=== PATIENT | male | born 1950 | race Caucasian/White ===

== ENCOUNTER → 2023-09-01 14:15 | Outpatient (REF) | payer MEDICARE, OTHER, SELFPAY | LOC: HWRAD 14:15 | PROVIDERS: ATTENDING PHYSICIAN Internal Medicine Critical Care Medicine; FAMILY PHYSICIAN Family Medicine | DX: J44.9 Chronic obstructive pulmonary disease, unspecified (principal); R91.1 Solitary pulmonary nodule | CPT/HCPCS: 71046 ==

== ENCOUNTER 2024-06-07 20:54 | Observation (INO) | payer MEDICARE, OTHER, SELFPAY ==
[2024-06-07 16:24] VITALS: BP 192/111
[2024-06-07 16:50] LABS: % Basophils 0.9 % (0-2); % Eosinophils 4.9 % (0-6); % Immature Granulocytes 0.4 % (0-0.5); % Lymphocytes 22.8 % (20.5-51.1); Absolute Basophils 0.1 10^3/uL (0-0.2); Absolute Eosinophils 0.5 10^3/uL (0-0.7); Absolute Lymphocytes 2.3 10^3/uL (1.2-3.4); Absolute Monocytes 0.7 10^3/uL (0.1-0.6); Absolute Neutrophils 6.6 10^3/uL (1.4-6.5); Hemoglobin 14.2 g/dL (13.0-18.0); Mean Corp Hgb Conc. 36.4 g/dL (33.0-37.0); Mean Corpuscular Hgb 32.8 pg (27.0-31.0); Mean Corpuscular Volume 90.1 fL (80.0-94.0); Mean Platelet Volume 10.7 fL (7.4-10.4); Nucleated Red Blood Cells % 0 % (-); Platelet Count 184 10^3/uL (130-400); Red Blood Cell Count 4.33 10^6/uL (4.70-6.10); Red Cell Dist. Width 12.8 % (11.5-14.5); White Blood Cell Count 10.3 10^3/uL (4.8-10.8)
[2024-06-07 16:58] LABS: APTT 27.6 Sec (23.4-35.0); INR 1.04; PT 13.4 Sec (11.4-14.6)
[2024-06-07 17:03] LABS: ALT (SGPT) 64 U/L (0-50); AST (SGOT) 63 U/L (17-59); Albumin 4.4 g/dl (3.5-5.0); Alkaline Phosphatase 47 U/L (38-126); Blood Urea Nitrogen 27 mg/dl (9-20); Calcium 9.7 mg/dl (8.4-10.2); Carbon Dioxide 24 mmol/L (22-30); Chloride 103 mmol/L (98-107); Glucose 163 mg/dl (70-99); Potassium 4.6 mmol/L (3.5-5.1); Sodium 142 mmol/L (135-145); Total Bilirubin 0.9 mg/dl (0.2-1.3); Total Protein 7.3 g/dl (6.3-8.2); eGFR > 60.00
[2024-06-07 17:12] VITALS: BP 150/94; BMI 38.0
--- NOTE | 2024-06-07 17:14 | ED.CVA ---
History of Present Illness
General
Chief Complaint: CVA/TIA Symptoms
Source: patient
Exam Limitations: none
Time Seen by Provider: 06/07/24 16:56
Nursing documentation reviewed up to this point in time: agreed with
Onset of Stroke Symptoms
Onset of symptoms known: Yes
Date of onset of symptoms: 06/07/24
Time of onset of symptoms: 15:00
Time pt last seen normal is known: Yes
Date last time pt seen normal: 06/07/24
Time last time pt seen normal: 14:45
History of Present Illness
History of Present Illness:
74-year-old male presents emergency room due to having difficulty speaking for about 20 minutes, then resolving. This happened at 3 PM. His witnessed it. He now feels normal. He had an episode 3 weeks ago as well. He did not go to the
hospital then as he was [place] [facility].
Past History
Past History
ED Past Medical History: HTN
ED Past Surgical History: None
Social History
Tobacco: Non-smoker
Alcohol: None
Drug: None
Personal:
Living: with family
Review of Systems
Review of Systems
Allergies reviewed?: Yes
All Other Systems: Not applicable
Constitutional: Reports no symptoms
EENT: Reports no symptoms
Respiratory: Reports no symptoms
Cardiac: Reports no symptoms
ABD/GI: Reports no symptoms
: Reports no symptoms
Musculoskeletal: Reports no symptoms
Skin: Reports no symptoms
Neurological: Reports other (Difficulty speaking)
Endocrine: Reports no symptoms
Hematologic/Lymphatic: Reports no symptoms
Psychiatric: Reports no symptoms
Phy Exam
Physical Exam
Physical Exam:
Physical Exam
General: Afebrile, blood pressure 192/111
Neck: supple. no meningeal signs. normal posterior pharynx
Heart: s1/s2 regular rate and rhythm, no murmur. equal radial
pulses.
HEENT: Pupils equal round reactive to light, EOMI
Lungs: no acute respiratory distress. clear bilaterally
Abdomen: normal bowel sounds. not tender. no CVAT
Neuro: alert and oriented. no focal neurological deficits cranial nerves II through XII intact
Skin: no rash
Psychiatric: well kept. interactive and cooperative
Extremities: no edema. no calf tenderness. negative homans. good distal pulses
Course
Orders/Labs/Results
Orders:
Orders
06/07/24 16:27
Electrocardiogram (*1) Urgent
Reason for Study: Other
Other Reason for Exam: Possible Stroke
EKG- Treatment ONCE
06/07/24 16:[address] [CT Head W/o Iv Contrast] Urgent
Comment: at 1500
Reason For Exam: tia symptoms-30 minutes of expressive aphasia
06/07/24 16:37
Complete Blood Count/With Diff Urgent
Comprehensive Metabolic Panel Urgent
PTT Urgent
Prothrombin Time Urgent
Troponin I Urgent
06/07/24 20:34
Admit/Transfer Patient As Directed
Co-Sign Provider:
Level of Care: Observation services
Assign to:: Telemetry
Physician / Group: chip
Diagnosis: tia
Reason for Telemetry: Arrhythmia
Date to Stop Telemetry: 06/10/24
Time to Stop Telemetry: 11:00
PRN Pain Medication Management As Directed
May give lesser potent ordered pain med per pt: Yes
preference::
Protocol:: Medication orders for pain may be administered in a
manner that supports deferring to patient preference
when the pt is:
- Requesting an ordered lesser potent pain medication.
Least to most potent pain medications are defined
as: acetaminophen < NSAID < tramadol < opioids
(morphine, oxycodone, hydromorphone).
- Requesting a lesser dose of the same medication IF
ORDERED.
- Requesting a less intrusive route of administration
if both routes are prescribed by the provider (PO <
IV).
06/07/24 20:35
Code Status As Directed
Resuscitation Status: Full Code
06/10/24 11:00
DC Protocol for Telemetry ONCE
Abnormal Lab Results
06/07/24
16:37
RBC 4.33 L 10^6/uL
(4.70-6.10)
MCH 32.8 H pg
(27.0-31.0)
MPV 10.7 H fL
(7.4-10.4)
Absolute Neuts (auto) 6.6 H 10^3/uL
(1.4-6.5)
Absolute Monos (auto) 0.7 H 10^3/uL
(0.1-0.6)
BUN 27 H mg/dl
(9-20)
Glucose 163 H mg/dl
(70-99)
AST 63 H U/L
(17-59)
ALT 64 H U/L
(0-50)
06/07/24 16:37
06/07/24 16:37
Vital Signs
Initial and Last Documented VS:
Initial Vital Signs
Temp Pulse Resp BP Pulse Ox
97.6 F 81 20 192/111 95
06/07/24 16:24 06/07/24 16:24 06/07/24 16:24 06/07/24 16:24 06/07/24 16:24
Last Documented Vital Signs
Temp Pulse Resp BP Pulse Ox
97.6 F 76 17 171/96 97
06/07/24 16:24 06/07/24 22:21 06/07/24 22:21 06/07/24 22:19 11/05/24 22:21
MDM/Problems Addressed
Differential Diagnosis Includes:
cva, tia
MDM/Problems Addressed:
74-year-old male with TIA. No acute neurologic findings. TNK not indicated. Admit to hospitalist for further workup. Second TIA in 3 weeks
Chronic conditions affecting care: HTN and COPD
Acute Exacerbation and/or Progression of Chronic Illness: HTN
*Radiology
Radiology exam reviewed: radiology read reviewed (CT head no acute findings)
*Pulse Oximetry
Patient hypoxic: no
*EKG
Interpreted by ED Provider?: Yes
EKG Intrepretation Date: 06/07/24
EKG Intrepretation Time: 16:33
Interpretation: abnormal
Comparison EKG: no comparison EKG present
Heart Rate: 79
Rate: normal
Rhythm: sinus
[place]: normal axis
Interval: normal interval
QRS Pattern: normal QRS
Ischemia: no ischemia
*Box Sealing Machine Feeder Interpretation
Rate: normal
Interpretation: normal
Heart Rate: 78
Rhythm: sinus
*Critical Care Note
Total Time (30-74mins, 75-104mins- exclusive of procedures): Not Applicable
Patient Management
Social determinants of health affecting care: Living situation and Strong social support
Discussion with other providers: Hospitalist
Escalation/DeEscalation of care consider admission/obs:
Admit indicated
ED Attending Note
-
Portions of this chart may have been created with voice recognition software.� Occasional wrong word or��sound alike� substitutions may have occurred due to the inherent limitations of voice recognition software.
Discharge Plan
Departure
Patient Disposition: Admit
Date of Disposition: 06/07/24
Time of Disposition: 19:01
Admit to: Telemetry
Presentation/result/management discussed w/ accepting MD/DO: Hospitalist
Patient with high blood pressure during this ER visit?: Yes
Condition: Good
Discharge Problem:
Transient ischemic attack (TIA)
Interventions
Interventions:
*Risk Screen - Suicide Last Done: 06/07/24 17:15
*General Assessment Last Done: 06/07/24 17:15
*Neglect/Abuse Screening Last Done: 06/07/24 17:15
ED- Fall Risk Assessment Last Done: 06/07/24 22:23
*ED COVID-19 Vaccine History Last Done: 06/07/24 17:15
*Nursing Disposition Last Done: 06/07/24 22:23
ED- Pulmonary Assessment Last Done: 06/07/24 17:15
ED- Neurological Assessment Last Done: 06/07/24 17:15
ED- Cardiac Assessment Last Done: 06/07/24 17:15
ED Swallowing Screen Last Done: 06/07/24 17:15
Discharge Date and Time
Discharge Date/Time: 06/07/24 22:24
[2024-06-07 17:15] LABS: Troponin I < 0.012 ng/ml
[2024-06-07 18:00] VITALS: BP 165/84
--- NOTE | 2024-06-07 20:40 | HPS.HSE ---
Family Physician
-
Family Physician: Jewel Melara
Chief Complaint
-
aphasia
History of Present Illness
74-year-old male past medical history of atrial fibrillation status post PVI, atrial flutter status post ablation in 2015, hypertension, hyperlipidemia, bifascicular heart block, spinal stenosis, obesity, abdominal aortic aneurysm, BPH, fatty liver,
diverticulosis, GERD, Sommers's esophagus, type 2 diabetes, pulmonary nodules, presenting with difficulty speaking for 20 minutes with resolution of symptoms. Occurred at 3 PM witnessed by his . He now feels normal. He had an episode like
this 3 weeks ago. At that time he was on vacation in the [employer] so he did not go to the hospital.
He did have some headache earlier. Denies blurry vision denies focal weakness, or numbness or tingling. He has some chronic disequilibrium at baseline which is not worse than usual.
He drinks alcohol 3-5 times a week. Denies smoking. Denies any drugs.
His father had a stroke 40 years ago.
Medical History
Past Medical History
Past Medical History: Reports Other (atrial fibrillation status post PVI, atrial flutter status post ablation in 2015, hypertension, hyperlipidemia, bifascicular heart block, spinal stenosis, obesity, abdominal aortic aneurysm, BPH, fatty liver,
diverticulosis, GERD, Sommers's esophagus, type 2 diabetes, pulmonary nodules)
Past Surgical History: Reports None
Social History
Tobacco: Non-smoker
Alcohol: Daily
Drug: None
Family History
Family History: Other (His father had a stroke 40 years ago.)
Allergies / Home Medications
Allergies reflects when Allergies were last updated in [facility].
Home Medications with original date entered in [facility]
Allergy/Medication List:
Allergies
Allergy/AdvReac Type Severity Reaction Status Date / Time
Sulfa (Sulfonamide Allergy SEE BELOW Verified 06/07/24 16:27
Antibiotics)
[Sulfa (Sulfonamides)]
Home Medications
carvedilol 12.5 mg tablet 12.5 mg PO BID Blood pressure 10/17/21
metformin 500 mg tablet 500 mg PO BID Diabetes 10/17/21
aspirin 325 mg tablet,delayed release 325 mg PO QPM Blood clot prevention/tx ##0 10/30/21
atorvastatin 80 mg tablet 80 mg PO DAILY High Cholesterol 04/10/23
coQ10 (ubiquinol) 200 mg capsule 200 mg PO QPM 04/10/23
finasteride 5 mg tablet 5 mg PO QPM Urinary Issue 04/10/23
fluticasone 250 mcg-salmeterol 50 mcg/dose blistr powdr for inhalation (Wixela Inhub) 1 inh inhalation R DAILY Lung/Breathing Issues 04/10/23
ibuprofen-diphenhydramine citrate 200 mg-38 mg tablet (Advil PM) 2 cap PO HSPRN PRN mild pain 04/10/23
gtsrgnuldhyx-nquxwxyn-kzrqbx tablet 1 tab PO QPM Supplement 04/10/23
glucosam 750 mg-chondroi 100 mg-hyalur 1.65 mg-CF borate 108 mg tablet (Move Free [place]) 1 tab PO DAILY 06/07/24
inulin 2 gram chewable tablet (Fiber Gummies) 2 g PO TID 06/07/24
lansoprazole 30 mg capsule,delayed release 30 mg PO DAILY 06/07/24
trospium 60 mg capsule,extended release 24 hr 60 mg PO DAILY 06/07/24
valsartan 320 mg tablet 320 mg PO QPM 06/07/24
Review of Systems
-
History Source: Patient
A 12 point ROS was completed and negative except as noted: Yes
Constitutional: Reports No Symptoms
EENT: Reports No Symptoms
Respiratory: Reports No Symptoms
Cardiac: Reports No Symptoms
Abdomen/GI: Reports No Symptoms
: Reports No Symptoms
Musculoskeletal: Reports No Symptoms
Skin: Reports No Symptoms
Neurological: Reports See HPI
Endocrine: Reports No Symptoms
Hematologic/Lymphatic: Reports No Symptoms
Psych: Reports No Symptoms
Physical Exam
Vital Signs
Vital Signs
Temp Pulse Resp BP Pulse Ox
97.6 F 77 18 165/84 95
06/07/24 16:24 06/07/24 18:15 06/07/24 18:15 06/07/24 18:00 06/07/24 18:15
Physical Exam
General: Well Developed, Well Nourished and No Apparent Distress
HEENT: NormoCephalic, Moist mucous membranes and Atraumatic
Respiratory: Clear
Cardiac: S1/S2 and Regular Rhythm; No Murmur or Rub
GI: Soft, Non Tender, Non Distended and Normal Bowel Sounds; No Organomegaly
Rectal: Deferred by Provider
Musculoskeletal: No Clubbing, No Cyanosis and No Edema
Skin: No Rash
Neuro: Nonfocal/grossly intact
Laboratory Results
-
06/07/24 16:37
06/07/24 16:37
Laboratory Results
PT 13.4 Sec (11.4-14.6) 06/07/24 16:37
INR 1.04 06/07/24 16:37
APTT 27.6 Sec (23.4-35.0) 06/07/24 16:37
Total Bilirubin 0.9 mg/dl (0.2-1.3) 06/07/24 16:37
AST 63 U/L (17-59) H 06/07/24 16:37
ALT 64 U/L (0-50) H 06/07/24 16:37
Alkaline Phosphatase 47 U/L (38-126) 06/07/24 16:37
Troponin I < 0.012 ng/ml 06/07/24 16:37
Data Reviewed
-
Lab Data: Labs Reviewed by me
Old Records: Reviewed
Impression/Plan
-
IMPRESSION:
PLAN:
# Resolved aphasia likely TIA
-CT head shows no acute intracranial abnormality
-Check MRI/MRA head and neck
-Check A1c and lipid panel
-Continue aspirin, statin
-Neurology consulted
Hypertensive urgency
-Continue valsartan
Paroxysmal atrial fibrillation status post PVI
-Continue Coreg
-Not on anticoagulation
Atrial flutter status post ablation 2014
Hyperlipidemia
-Continue statin
Bifascicular heart block
Spinal stenosis
Obesity
Abdominal aortic aneurysm
BPH
-Continue finasteride
Fatty liver
Diverticulosis
GERD/Sommers's esophagus
-Continue lansoprazole
Type 2 diabetes
-Continue metformin
History of pulmonary nodules
Overactive bladder
-Continue trospium
Full code
DVT prophylaxis-�SCDs
Regular diet
[2024-06-07 21:32] VITALS: BP 158/106
[2024-06-07 22:19] VITALS: BP 171/96
[2024-06-07 22:44] VITALS: BP 155/110; BMI 36.9
--- NOTE | 2024-06-07 23:00 | TRANSFER ---
pt arrived from ED via stretcher escorted by ED staff. pt independently ambulated from the stretcher to bed. AAOx3. VSS stable except high BP- 155/110 on admission. pt stated that he did not take his PM dose of Valsartan today. H[employer] P[employer] OPERATOR notified, STAT
orders for pt regular dose of Valsartan 320mg given. oriented pt to room, call haddad within reach. plan of care ongoing.
[2024-06-07 23:28] VITALS: BMI 36.9
[2024-06-07] MEDS: DIOVAN 320 MG PO (23:33)
[2024-06-08] VITALS (7 sets, daily range): BP systolic 121–190; BP diastolic 70–128; PULSE 85–96; O2SAT 95
[2024-06-08] MEDS: APRESOLINE 5 MG IV ×3 (01:25→10:15)
[2024-06-08] MEDS: ADVAIR HFA 115/21 MCG INHALER 2 PUFF INH (07:41)
--- NOTE | 2024-06-08 08:21 | CON.NEURO4 ---
Addendum entered and electronically signed by Oziel Bartholomew MD 06/08/24 10:38:
Studies reviewed.
I have personally examined the patient. I reviewed and agree with the ROOFER VINYL COATING's Note.
My addenda:
Awake, alert, interactive. No acute distress.
Speech intact. Minimal difficulty with repetitive phrases. No difficulty with naming objects
Follows 2-step requests w/ mild difficulty. No tremor.
Extra-ocular movements grossly intact.
Facial movements full and symmetric. Hearing intact to normal conversational volume.
Normal UE movements bilaterally.
Neck: full ROM.
Chest: no dyspnea
Heart: no JVD
Ext: (-) Clubbing, (-) Cyanosis, (-) Edema
IMPRESSIONS/RECOMMENDATIONS:
Abrupt onset of recurrent difficulty with word finding
Differential diagnosis includes hypertensive encephalopathy, transient ischemic attack based on the patient's history of atrial fibrillation, although treated. Neurocognitive disorder is also possible especially in light of the patient's prior
history of obstructive sleep apnea
We will review MRI of brain results
We will review MRA head and neck results
Rehabilitation evaluations
Continue atorvastatin 80 mg daily
Consider outpatient neuropsychological evaluation
Will continue to follow pending results.
Original Note:
Documented by User: Shakila Taylor NP 06/08/24 10:20
Consultation - Neurology 4
-
CONSULTING PHYSICIAN: Oziel Bartholomew MD
REFERRING PHYSICIAN: Hospitalists/Dr. Stein
DICTATED BY: GUIDO Benitez
DATE/TIME OF REQUEST: 06/07/24
DATE/TIME OF CONSULTATION: 06/08/24
Reason for Consultation: Speech difficulty
History of Present Illness:
This is a 74-year-old right-handed male who has presented to the hospital on 06/07/24 with report of speech difficulty. Patient reports that yesterday (06/07/24) around 1500 he bent over to pick something up off of the ground and had a transient
'woozy' sensation followed by 15-20 minutes of knowing what he wanted to say but having nonsensical speech come out. CT head was obtained on arrival to the ER and is negative for any acute abnormalities. Blood pressure was 192/111. He was not a
candidate for TNK/IAT due to resolution of symptoms, NIHSS 0. He notes having a similar event three weeks ago in which he was also bending over to pick something up and had about 10 minutes of speech difficulty afterward. He denies any headache,
neck pain, vision changes/amaurosis, swallowing difficulty, numbness, or weakness. He reports a history of gait disturbance which he describes as 'veering to one side' when walking since his lumbar laminectomy in 2021. He also has a history of
paroxysmal Afib s/p cardiac ablation by Dr. Noam Alonzo. He is not on anticoagulation, he takes aspirin 325mg daily and denies missing any doses. He does not have an ILR, he notes that he wears an [employer] watch which has never alerted him that
he is in Afib. He endorses having a AAA, he is due for his six-month surveillance ultrasound next week.
Past Medical History: Paroxysmal afib (aspirin), NIDDM, HILTON, retinal detachment (right eye?), AAA, COPD, asthma, NAFLD, lumbar spondylosis, GERD, hepatitis B (1966), pulmonary nodule, DISH, diverticulitis
Surgical History: Cardiac ablation, retina repair (R eye?), b/l cataract removal, b/l inguinal hernia repair, tonsillectomy, L rotator cuff repair, L5-S1 [place] MARIANGEL, lumbar laminectomy, prostatectomy
Family History: Father- stroke.
Social History: Former smoker, quit 5-6 years ago. Occasional alcohol. Denies illicit drug use.
Allergies: Sulfa.
Home Medications: See below.
Review of Symptoms:
Patient denies any fever, headache, chest pain, shortness of breath, GI or symptoms.
�Per the HPI.�All systems are reviewed negative except above.
Physical Exam:
The patient is afebrile, abdomen is nondistended, breathing is unlabored, skin is warm and dry, no edema.
NIH Stroke Scale:
I performed the NIH stroke scale on the patient on 06/08/24 at 0830. The patient scored 1 points on the NIH stroke scale assessment, which were assigned as follows: See below.
Neurologic Examination:
The patient is awake, alert and oriented x 3. He is able to follow commands and answer questions appropriately. There is mild aphasia noted with repetition of complex sentences. There is no dysarthria. On cranial nerve assessment, pupils are 3 mm
bilateral, round and reactive to light and accommodation. Visual ritter are full to finger wiggle. Extraocular movements are intact. Facial sensations are intact and bilaterally symmetrical, there is no facial asymmetry. Hearing is intact
bilaterally to normal conversation volume. Tongue palate and uvula are midline. Sternocleidomastoid strengths are full bilaterally. Motor strengths are 5/5 bilateral upper and lower extremities on medical research [place] scale. There is no drift.
There is a mild jaw tremor. Deep tendon reflexes are 2+ bilateral upper and lower extremities and Babinski is absent bilaterally. There was no extinction noted on double simultaneous stimulation. Coordination is intact by finger to nose bilaterally.
Lab Results: See below.
Neuro Imaging:
1. CT Head 06/07/24: No acute intracranial abnormality noted.
Differentials for the patient's presentation include:
1. Concern for a small left hemisphere ischemic infarct given difficultly repeating complex sentences.
2. Hypertensive urgency.
3. History of paroxysmal Afib s/p cardiac ablation, not on anticoagulation.
4. Orthostatic hypotension possible.
Patient has the following risk factors for their symptoms: Afib, HTN, HLD, NIDDM, age
IV Tenecteplase/IAT candidacy: He was not a candidate for TNK/IAT due to resolution of symptoms, NIHSS 0.
Recommendations:
-Continue aspirin 325mg daily.
-MRI brain noncontrast, MRA head/neck pending.
-Check orthostatic vital signs BID.
-Permissive hypertension SBP<220, DBP<120 until 1500 today, then goal normotension.
-Monitor on telemetry, consider outpatient continued cardiac monitoring.
-TTE pending.
-LDL goal <70. LDL is 62. Continue home atorvastatin 80mg daily.
-Goal normoglycemia, hbA1c is 6.5.
-Checking blood work for metabolic abnormalities.
-PT/OT/ST evaluations.
-NIHSS and neurological checks per unit guidelines.
-Provide patient with a stroke education packet.
-DVT prophylaxis.
-Will follow pending results.
Discussed patient care with: Dr. Bartholomew, the patient
Vital Signs and Labs
-
Vital Signs and Labs:
Vital Signs
Temp Pulse Resp BP Pulse Ox
97.5 F 82 18 190/128 96
06/08/24 07:58 06/08/24 07:58 06/08/24 07:58 06/08/24 07:58 06/08/24 07:58
Lab Results
06/07/24 16:37
06/07/24 16:37
PT 13.4 Sec (11.4-14.6) 06/07/24 16:37
INR 1.04 06/07/24 16:37
APTT 27.6 Sec (23.4-35.0) 06/07/24 16:37
Sodium 142 mmol/L (135-145) 06/07/24 16:37
Potassium 4.6 mmol/L (3.5-5.1) 06/07/24 16:37
BUN 27 mg/dl (9-20) H 06/07/24 16:37
Glucose 163 mg/dl (70-99) H 06/07/24 16:37
Calcium 9.7 mg/dl (8.4-10.2) 06/07/24 16:37
Medications
-
Active Medications
Generic Name Dose Route Start Last Admin
Trade Name Freq PRN Reason Stop Dose Admin
Aspirin 325 mg 06/08/24 18:00
Aspirin 325 Mg Enteric Coated Tablet PO 07/06/24 17:59
QPM RICHARDSON
Atorvastatin Calcium 80 mg 06/08/24 08:00
Atorvastatin (Lipitor) 80 Mg Tablet PO 07/06/24 07:59
DAILY RICHARDSON
Calcium Polycarbophil 1,250 mg 06/08/24 08:00
Calcium Polycarbophil 625 Mg Tablet PO 07/06/24 07:59
TID RICHARDSON
Carvedilol 12.5 mg 06/08/24 08:00
Carvedilol 12.5 Mg Tablet PO 07/06/24 07:59
BID RICHARDSON
Finasteride 5 mg 06/08/24 18:00
Finasteride 5 Mg Tablet PO 07/06/24 17:59
QPM RICHARDSON
Hydralazine HCl 5 mg 06/07/24 22:28 06/08/24 01:25
Hydralazine 20 Mg/Ml Vial IV 07/05/24 22:27 5 mg
Q6HPRN PRN Administration
HTN
Metformin HCl 500 mg 06/08/24 08:00
Metformin 500 Mg Regular Release Tablet PO 07/06/24 07:59
BID AT 0800,1700 RICHARDSON
Pantoprazole Sodium 40 mg 06/08/24 08:00
Pantoprazole 40 Mg Delayed Release Tablet PO 07/06/24 07:59
DAILY RICHARDSON
Fluticasone/Salmeterol 2 puff 06/08/24 08:00 06/08/24 07:41
Advair Hfa 115/21 Inhaler INH 07/06/24 07:59 2 puff
R DAILY RICHARDSON Administration
Sodium Chloride 0 flush 06/07/24 23:00
Sodium Chloride 0.9% (Flush) Syringe IV 07/05/24 22:59
PER PROTOCOL RICHARDSON
Thiamine HCl 100 mg 06/08/24 11:00
Thiamine 100 Mg Tablet PO 06/10/24 08:01
DAILY RICHARDSON
Tolterodine Tartrate 2 mg 06/08/24 08:00
Tolterodine 2 Mg Extended Release Capsule PO 07/06/24 07:59
DAILY RICHARDSON
Valsartan 320 mg 06/08/24 18:00
Valsartan 80 Mg Tablet PO 07/06/24 17:59
QPM RICHARDSON
Home Medications
�Medication �Instructions �Recorded
carvedilol 12.5 mg tablet 12.5 mg PO BID Blood pressure 10/17/21
metformin 500 mg tablet 500 mg PO BID Diabetes 10/17/21
aspirin 325 mg tablet,delayed 325 mg PO QPM Blood clot 10/30/21
release prevention/tx ##0
atorvastatin 80 mg tablet 80 mg PO DAILY High Cholesterol 04/10/23
coQ10 (ubiquinol) 200 mg capsule 200 mg PO QPM 04/10/23
finasteride 5 mg tablet 5 mg PO QPM Urinary Issue 04/10/23
fluticasone 250 mcg-salmeterol 50 1 inh inhalation R DAILY 04/10/23
mcg/dose blistr powdr for Lung/Breathing Issues
inhalation (Wixela Inhub)
ibuprofen-diphenhydramine citrate 2 cap PO HSPRN PRN mild pain 04/10/23
200 mg-38 mg tablet (Advil PM)
ebjgxbssszpb-laljdiun-hpbjdq tablet 1 tab PO QPM Supplement 04/10/23
glucosam 750 mg-chondroi 100 1 tab PO DAILY 06/07/24
mg-hyalur 1.65 mg-CF borate 108 mg
tablet (Move Free [employer])
inulin 2 gram chewable tablet 2 g PO TID 06/07/24
(Fiber Gummies)
lansoprazole 30 mg capsule,delayed 30 mg PO DAILY 06/07/24
release
trospium 60 mg capsule,extended 60 mg PO DAILY 06/07/24
release 24 hr
valsartan 320 mg tablet 320 mg PO QPM 06/07/24
NIH Stroke Score
Subsequent NIH Scale
Date of Subsequent NIH Scale: 06/08/24
Time of Subsequent NIH Scale: 08:30
NIH Stroke Score
Level of Consciousness: 0 - Alert
LOC Questions: 0-Answers both correctly
LOC Commands: 0-Performs both correctly
Best Horizontal Gaze: 0-Normal
Visual Ritter: 0=Normal, no visual loss
Facial Palsy: 0=Normal, symmetrical
Motor - Right Arm: 0=No drift 10 seconds
Motor - Left Arm: 0=No drift 10 seconds
Motor - Right Le-No drift 5 seconds
Motor - Left Le-No drift 5 seconds
Limb Ataxia: 0-Absent
Sensation: 0-Normal
Best Language: 1-Mild aphasia
Dysarthria: 0-Normal
Extinction and Inattention: 0-No abnormality
Total Score:: 1
Modified [place] (mRS) Score
Modified [place] Scale (mRS): No significant disability. Able to carry out usual activities.
Score: 1

Documented by User: Oziel Bartholomew MD 06/08/24 10:26
NIH Stroke Score
NIH Stroke Score
Total Score:: 1
Modified [place] (mRS) Score
Score: 1
[2024-06-08 08:46] LABS: HDL Cholesterol 36 mg/dl; LDL Cholesterol, Calculated 62 mg/dl; Total Cholesterol 123 mg/dl (50-199); Triglyceride 128 mg/dl (10-149); Very Low Density Lipoprotein 25 mg/dl (0-30)
[2024-06-08 08:55] LABS: Glycohemoglobin (HgbA1c) 6.5 % (4.0-5.6)
[2024-06-08] MEDS: PROTONIX 40 MG PO (09:09)
[2024-06-08] MEDS: FIBERCON 1250 MG PO ×3 (09:09→20:11)
[2024-06-08] MEDS: LIPITOR 80 MG PO (09:09)
[2024-06-08] MEDS: DETROL LA 2 MG PO (09:10)
[2024-06-08] MEDS: GLUCOPHAGE 500 MG PO ×2 (09:10→17:28)
[2024-06-08] MEDS: COREG 12.5 MG PO (09:10)
[2024-06-08] MEDS: ATIVAN 1 MG PO (10:00)
--- NOTE | 2024-06-08 12:08 | CARDSERVLU ---
Echocardiogram with Lumason completed after protocol screening completed. Allergies verified.
Patent IV site: __Right antecubital site clear (In patient)___
IV site flushed with 0.9% NaCl pre and post administration.
Diluted bolus method utilized to enhance visualization of ventricular ibrahim.
Total volume given: _3___ mL
Patient tolerated all procedures well without complications.
--- NOTE | 2024-06-08 12:19 | W.PN.HOSP.TC ---
Today's Communication/Plan
-
Monitor vital signs see plan
MRI/MRI pending
Cardiology evaluation
PT/OT
Echo
Assessment / Plan
Assessment / Plan
General: Well Developed, Well Nourished and No Apparent Distress
HEENT: NormoCephalic, Moist mucous membranes and Atraumatic
Respiratory: Clear
Cardiac: S1/S2 and Regular Rhythm; No Murmur or Rub
GI: Soft, Non Tender, Non Distended and Normal Bowel Sounds; No Organomegaly
Rectal: Deferred by Provider
Musculoskeletal: No Clubbing, No Cyanosis and No Edema
Skin: No Rash
Neuro: Nonfocal/grossly intact
Resolved aphasia likely TIA
-CT head shows no acute intracranial abnormality
-Check MRI/MRA head and neck
-Continue aspirin, statin
-Neurology following
Echo
Hypertensive urgency
-Continue valsartan,coreg
Paroxysmal atrial fibrillation status post PVI
-Continue Coreg
-Not on anticoagulation
Spoke with neurology, consulted cardiology for possible need for anticoagulation
hx of DM
On metformin at home
Insulin sign scale, Accu-Chek
Atrial flutter status post ablation 2014
Hyperlipidemia
-Continue statin
Bifascicular heart block
Spinal stenosis
Obesity
Abdominal aortic aneurysm
Mild LFT elevation
Denies abdominal pain
Monitor
BPH
-Continue finasteride
Fatty liver
Diverticulosis
GERD/Sommers's esophagus
-Continue lansoprazole
Type 2 diabetes
-Continue metformin
History of pulmonary nodules
Overactive bladder
-Continue trospium
Full code
DVT prophylaxis-�SCDs
Anticipated Discharge: Within 24 hours
Subjective/Interval History
-
Date of Service: June 08, 2024
Denies pain
Objective Data
-
Vital Signs:
Vital Signs
Temp Pulse Resp BP Pulse Ox
97.5 F 100 18 178/130 96
06/08/24 07:58 06/08/24 10:15 06/08/24 07:58 06/08/24 10:15 06/08/24 08:00
I&O
06/07/24 06/08/24 06/09/24
06:59 06:59 06:59
Intake Total 480 / 480
Balance 480 / 480
[2024-06-08 12:31] LABS: Glucose - Point of Care 142 mg/dl (70-99)
--- NOTE | 2024-06-08 12:35 | CON.CAR ---
Addendum entered and electronically signed by Chelsy Alonzo MD 06/08/24 16:10:
I saw and examined the patient.
The Web Assistant's note was reviewed and I agree with the note.
Exam stable with distant heart sounds, trace lower extremity edema, clear lungs.
Comment: Seen and examined with patient's at bedside. He came in with 2 episodes of after bending having slurred speech. These episodes were by 1 to 2 weeks. Episodes were transient. Thus far MRI and MRA negative for acute
abnormality. His blood pressure has been exceptionally hypertensive during hospital visit. It also appears as an outpatient his blood pressure is elevated and then comes down according to the patient by the end of office visit with primary. Echo
with normal LV function however now moderate to severe LVH consistent with hypertensive heart disease. He has prior history of atrial fibrillation/atrial flutter status post pulmonary vein isolation in 2014 and we have not seen him in the office
since 2015. Echocardiogram otherwise 06/08/2024 with ejection fraction 65 to 70%. Moderate to severe LVH. Normal RV. No significant valve disease.
Plan at this time as discussed with patient and his :
-Good blood pressure control. Certainly significant hypertension could lead to symptoms as described. We have increased carvedilol and added low-dose amiodarone to his usual regimen. Goal blood pressure less than 135/85. This should be followed
up in the office closely.
-Continue to monitor telemetry.
-Rhythm*2-week monitor day of discharge. If rhythm star monitor is negative would implant Linq monitor which was discussed with the patient and his .
-Risk factor modification
-Continue treatment of sleep apnea
-Antiplatelet therapy and further recommendations per neurology. We have not seen recurrence of atrial fibrillation and do not recommend oral anticoagulation unless atrial arrhythmias noted.
Original Note:
Consultation
Consultation Request
Date/Time Consultation Performed: 06/08/24
Requesting Provider: Dr. Sutton
Performing Provider: Jewell Juares PA-C for Dr. Chelsy Alonzo
Reason for Consultation: TIA, history of afib
Medical History
-
Chief Complaint: word finding difficulty
History of Present Illness:
Patient is a 74-year-old male with past medical history of paroxysmal atrial fibrillation and atrial flutter status post EP study and CTI flutter ablation 09/21/2014, and cryo PVI 11/28/2014. He has not been noted to have recurrence since that time.
He reports he monitors his heart rates at home through his fitbit and through pulse ox. Historically with afib he has been symptomatic with feeling woozy and fluttering, which he has not felt recently. He has been maintained on asa 325mg daily after
his xarelto was discontinued post PVI. He is also on medication for HTN, HLD, DM2, GERD, COPD. He also has BPH s/p prostatectomy in 04/2023. He reports while on vacation in May 2024 he was packing his suitcase reported ~10 minutes of word finding
difficulty which resolved. Then yesterday while he was bending over to pull in cords to outlets had an episode of word finding difficulty resulting in him coming to ER for evaluation. Reports this episode lasted ~15-20 minutes and resolved without
recurrence. Denies palpitations, CP, SOB, lightheadedness associated with episodes. Head CT and brain MRI without acute findings. Cardiology consulted for evaluation as with TIA in setting of prior afib/aflutter.
PMH:
Paroxysmal atrial fibrillation status post cryo PVI 11/28/2014
Atrial flutter status post EP study and CTI flutter ablation 09/21/2014
Chronic bifascicular block
Hypertension
Hyperlipidemia
Diabetes 2
GERD/Sommers's esophagus
COPD
[place]
BPH status post prostatectomy 04/2023
Spinal stenosis
AAA
History of pulmonary nodules
Former smoker
Past Medical History
Past Medical History: Other (in HPI)
Social History
Tobacco: Former Smoker
Alcohol: Occasional
Personal:
Living: With Family
Employment: Retired
Family History
Family History: Other (CVA in father)
Allergies / Home Medications
Allergy/AdvReac Type Severity Reaction Status Date / Time
Sulfa (Sulfonamide Allergy SEE BELOW Verified 06/07/24 16:27
Antibiotics)
[Sulfa (Sulfonamides)]
�Medication �Instructions �Recorded �Confirmed �Type
carvedilol 12.5 mg tablet 12.5 mg PO BID Blood pressure 10/17/21 06/07/24 History
metformin 500 mg tablet 500 mg PO BID Diabetes 10/17/21 06/07/24 History
aspirin 325 mg tablet,delayed 325 mg PO QPM Blood clot 10/30/21 06/07/24 Rx
release prevention/tx ##0
atorvastatin 80 mg tablet 80 mg PO DAILY High Cholesterol 04/10/23 06/07/24 History
coQ10 (ubiquinol) 200 mg capsule 200 mg PO QPM 04/10/23 06/07/24 History
finasteride 5 mg tablet 5 mg PO QPM Urinary Issue 04/10/23 06/07/24 History
fluticasone 250 mcg-salmeterol 50 1 inh inhalation R DAILY 04/10/23 06/07/24 History
mcg/dose blistr powdr for Lung/Breathing Issues
inhalation ([employer])
ibuprofen-diphenhydramine citrate 2 cap PO HSPRN PRN mild pain 04/10/23 06/07/24 History
200 mg-38 mg tablet (Advil PM)
eypkuawwylvg-cbuzwkxz-fkvhgk tablet 1 tab PO QPM Supplement 04/10/23 06/07/24 History
glucosam 750 mg-chondroi 100 1 tab PO DAILY 06/07/24 06/07/24 History
mg-hyalur 1.65 mg-CF borate 108 mg
tablet ([employer])
inulin 2 gram chewable tablet 2 g PO TID 06/07/24 06/07/24 History
(Fiber Gummies)
lansoprazole 30 mg capsule,delayed 30 mg PO DAILY 06/07/24 06/07/24 History
release
trospium 60 mg capsule,extended 60 mg PO DAILY 06/07/24 06/07/24 History
release 24 hr
valsartan 320 mg tablet 320 mg PO QPM 06/07/24 06/07/24 History
Review of Systems
-
History Source: Patient and Family
All other systems: Negative unless noted
Physical Exam
Vital Signs
Temp Pulse Resp BP Pulse Ox
97.5 F 100 18 178/130 96
06/08/24 07:58 06/08/24 10:15 06/08/24 07:58 06/08/24 10:15 06/08/24 08:00
Lab Results
06/07/24 16:37
06/07/24 16:37
Troponin I < 0.012 ng/ml 06/07/24 16:37
Physical Exam
General: No Apparent Distress, Comfortable and Other (sitting in chair)
HEENT: Normocephalic, Anicteric and Moist Mucous Membranes
Respiratory: Clear and Non Labored Respirations
Cardiac: S1/S2 and Regular Rhythm
GI: Soft, Non Tender, Non Distended and Normal Bowel Sounds
Musculoskeletal: No Clubbing, No Cyanosis and No Edema
Skin: Warm and Dry
Neuro: AO x 3
Impression / Plan
-
Primary [employer] Thread Winder: Dr. Marcelo Alonzo, last seen 2015
Assessment:
Presentation with aphasia, resolved
TIA
Hypertensive urgency
Paroxysmal atrial fibrillation status post cryo PVI 11/28/2014
Atrial flutter status post EP study and CTI flutter ablation 09/21/2014
Chronic bifascicular block
Hypertension
Hyperlipidemia
Diabetes 2, hgba1c 6.5%
GERD/Sommers's esophagus
COPD
[place]
BPH status post prostatectomy 04/2023
Spinal stenosis
AAA
History of pulmonary nodules
Former smoker
mild LFT elevation
ECHO 03/27/23: EF 55%, mild cLVH, RV grossly enlarged, aortic sclerosis, PAP 20 to 25 mmHg, trace pericardial effusion with pericardial fat
ECHO 06/08/2024: Moderate to severe concentric LVH, EF 65 to 70%, trivial pericardial effusion, fat pad present
Plan:
-Patient presents with 2 episodes of transient aphasia within the last several weeks, fortunately resolved
-Head CT and brain MRI negative for acute abnormality
-Thus far sinus rhythm with chronic bifascicular block and several 3-4 beat runs of A. tach on review of telemetry, no clear A-fib or a flutter
-Blood pressures remain significantly elevated and echo with moderate to severe concentric LVH, new compared to prior from last year
-Increase Coreg to 25 mg twice daily. Continue outpatient valsartan 320 mg p.o. every afternoon. Add Norvasc 2.5 mg daily. Follow blood pressure trends. Continue IV hydralazine as needed
-LDL 62. Continue Lipitor. follow LFTs, mildly elevated, on statin therapy
-Neck MRA without significant carotid stenosis bilaterally
-For 14-day bus driver/monitor to be placed tomorrow AM prior to discharge to ensure no paroxysmal arrhythmia as OP. May consider for linq dependent on results of 2-week monitor
-outpatient cardiac follow-up arranged
-Discussed with patient and at bedside
-Discussed with hospitalist via [place] text
Data Reviewed
-
EKG: Tracing Personally Visualized and interpreted
CT Scan: Report Reviewed by me
MRI: Report Reviewed by me
Medical Tests (Nuc Med, Echo etc): Report Reviewed by me
Labs: Labs Reviewed by me
Old Records: Reviewed
[2024-06-08 13:12] LABS: TSH Reflex To Free T4 1.35 uIU/ml (0.47-4.68)
[2024-06-08] MEDS: VITAMIN B1 100 MG PO (13:25)
[2024-06-08 13:47] LABS: Folate 16.1 ng/ml (2.76-20); Vitamin B12 432 pg/ml (239-931)
--- NOTE | 2024-06-08 15:53 | CM ---
Alert awake oriented patient who lives with his Juanita who lives in a 3 story home with 1 step to enter and 16 steps to bed and bathroom. He is independent in driving and in all activities of daily living.He was offered VN he declined need.He
uses CPAP from [facility] and a cane. Laureano given explained and signed on chart.
DH VN hx / No SNF history
Pharmacy [facility]
PCP Tommy Singh
PLAN Home Declined VN
--- NOTE | 2024-06-08 16:15 | PTOTSP ---
Speech Therapy Evaluation Note:
Pt's oropharyngeal swallow within functional limits at this time. Pt with no overt s/sx of aspiration across evaluation and passed 3oz swallow screen. Pt's reported concern with pt nearly choking at home on several occasions (nuts, grapes,
pepper), therefore pt would benefit from VSE during inpatient stay versus outpatient.
Regarding language, pt's expressive and receptive language skills assessed using the Quick Aphasia Battery (QAB). Pt scored 10.00 overall, indicative of no aphasia. Pt demonstrated skills that were within functional limits for word comprehension,
sentence comprehension, word finding, grammatical construction, speech motor programming, repetition, and reading.
Recommend:
1. Continue IDDSI Level 7 (regular) and thin liquids
2. Medications as tolerated
3. General aspiration precautions
4. continued ST at acute care level to monitor tolerance of diet and consider VSE.
[2024-06-08] MEDS: NORVASC 2.5 MG PO (16:20)
[2024-06-08 16:59] LABS: Glucose - Point of Care 149 mg/dl (70-99)
[2024-06-08] MEDS: ASPIRIN ENTERIC COATED 325 MG PO (17:29)
[2024-06-08] MEDS: DIOVAN 320 MG PO (17:30)
--- NOTE | 2024-06-08 18:11 | PTCARENOTE ---
Received patient this am AAOx3. Pt off unit for MRI/MRA Brain and Echocardiogram. Pt tolerate diet well. OOB to chair an ambulating in hallway independently with as steady gait. Pt offered no complaints. Made patient comfortable. Cont to assess
patient status.
[2024-06-08] MEDS: COREG 25 MG PO (20:11)
[2024-06-08 21:11] LABS: Glucose - Point of Care 141 mg/dl (70-99)
[2024-06-08] MEDS: PROSCAR 5 MG PO (22:01)
[2024-06-09] VITALS: BP 116/75; BP 145/89; BP 147/83; PULSE 73; PULSE 75; PULSE 90
[2024-06-09 03:10] VITALS: BP 133/75
[2024-06-09 07:18] LABS: Glucose - Point of Care 143 mg/dl (70-99)
[2024-06-09 07:22] LABS: % Basophils 0.8 % (0-2); % Eosinophils 5.3 % (0-6); % Immature Granulocytes 0.5 % (0-0.5); % Lymphocytes 26.2 % (20.5-51.1); % Monocytes 10.1 % (1.7-9.3); % Neutrophils 57.1 % (42.2-75.2); Absolute Basophils 0.1 10^3/uL (0-0.2); Absolute Eosinophils 0.5 10^3/uL (0-0.7); Absolute Immature Granulocytes 0.1 10^3/uL (0-0.05); Absolute Lymphocytes 2.6 10^3/uL (1.2-3.4); Absolute Neutrophils 5.7 10^3/uL (1.4-6.5); Hematocrit 38.4 % (39.0-52.0); Hemoglobin 13.9 g/dL (13.0-18.0); Mean Corp Hgb Conc. 36.2 g/dL (33.0-37.0); Mean Corpuscular Volume 88.5 fL (80.0-94.0); Mean Platelet Volume 11.1 fL (7.4-10.4); Nucleated Red Blood Cells % 0 % (-); Platelet Count 192 10^3/uL (130-400); Red Blood Cell Count 4.34 10^6/uL (4.70-6.10)
[2024-06-09 07:46] LABS: ALT (SGPT) 60 U/L (0-50); AST (SGOT) 53 U/L (17-59); Albumin 4.1 g/dl (3.5-5.0); Alkaline Phosphatase 47 U/L (38-126); Blood Urea Nitrogen 30 mg/dl (9-20); Calcium 9.8 mg/dl (8.4-10.2); Carbon Dioxide 29 mmol/L (22-30); Chloride 101 mmol/L (98-107); Estimated Creatinine Clearance 80 ml/min; Glucose 140 mg/dl (70-99); Potassium 4.2 mmol/L (3.5-5.1); Sodium 141 mmol/L (135-145); Total Bilirubin 1.2 mg/dl (0.2-1.3); Total Protein 6.8 g/dl (6.3-8.2); eGFR > 60.00
[2024-06-09] MEDS: ADVAIR HFA 115/21 MCG INHALER 2 PUFF INH (07:54)
[2024-06-09 07:55] VITALS: BP 146/89; BP 160/92; BP 161/98; PULSE 70; PULSE 73; PULSE 84
--- NOTE | 2024-06-09 08:05 | W.PN.NEURO.1 ---
Today's Communication / Plan
-
Provide abdominal binder due to orthostasis
Patient encouraged to increase water intake to avoid orthostasis
Continue aspirin
Goal of normotension
Neuro Assessment/Plan
Assessment
Abrupt onset of recurrent difficulty with word finding
Differential diagnosis includes hypertensive encephalopathy, transient ischemic attack based on the patient's history of atrial fibrillation, as well as orthostatic hypotension discovered by testing
MRI of brain results suggest white matter changes
Unremarkable MRA head and neck results
Plan
Provide abdominal binder due to orthostasis
Patient encouraged to increase water intake to avoid orthostasis
Continue aspirin
Goal of normotension
Appreciate cardiology evaluation relation and orthostasis
We will follow as needed
Subjective/Objective
Subjective Data
Date of Service: June 09, 2024
No new events
Objective Data
Vital Signs
Temp Pulse Resp BP Pulse Ox
36.6 C 80 18 161/98 95
06/09/24 07:55 06/09/24 07:55 06/09/24 07:55 06/09/24 07:55 06/09/24 07:55
Lab Results
06/09/24 06:40
06/09/24 06:40
PT 13.4 Sec (11.4-14.6) 06/07/24 16:37
INR 1.04 06/07/24 16:37
APTT 27.6 Sec (23.4-35.0) 06/07/24 16:37
Sodium 141 mmol/L (135-145) 06/09/24 06:40
Potassium 4.2 mmol/L (3.5-5.1) 06/09/24 06:40
BUN 30 mg/dl (9-20) H 06/09/24 06:40
Glucose 140 mg/dl (70-99) H 06/09/24 06:40
Calcium 9.8 mg/dl (8.4-10.2) 06/09/24 06:40
LDL Cholesterol, Calc 62 mg/dl 06/08/24 07:18
Vitamin B12 432 pg/ml (239-931) 06/08/24 07:18
Patient Allergies
Sulfa (Sulfonamide Antibiotics) [Sulfa (Sulfonamides)] Allergy (Verified 06/07/24 16:27)
SEE BELOW
Review of Systems
-
History Source: Patient
All other systems: Reviewed and negative
Musculoskeletal: Negative Neck Pain
Neuro: Headache; Negative Dizzy
Physical Exam
-
General: No Apparent Distress, Obese and Appears Stated Age
Eyes: Round OU, [place] Conjunctivae and No Ptosis
HEENT: Anicteric and Moist Mucous Membranes
Neck: Full Range of Motion
Respiratory: No Dyspnea
Cardiac: No JVD
GI: Non-distended
Skin: Unremarkable
Extremities: No Clubbing, No Cyanosis and No Edema
Psych: Intact Judgement/Insight
Extended Neurological Exam
Mood & Affect: Mood Unremarkable and Affect Unremarkable
Attention Span & Concentration: Awake, Alert and Interactive
Memory: Unremarkable
Tremor: Hand Tremor Absent and Head Tremor Absent
Speech: Quality Unremarkable and Quantity Unremarkable
Cranial Nerve II: Left Eye: Pupillary Size Unremarkable and Visual Ritter Grossly Intact
Cranial Nerve II: Right Eye: Pupillary Size Unremarkable and Visual Ritter Grossly Intact
Cranial Nerves III, IV, : Extraocular Movement: Extraocular Movement Full in all Directions
Cranial Nerve VII: Facial Symmetry: Normal Facial Symmetry
Cranial Nerve VIII: Hearing: Unremarkable Hearing to Normal Conversational Volume
Cranial Nerve XI: Shoulder Shrug: Unremarkable
Muscle Strength, Overall: Full in Upper Extremities
Muscle Bulk & Tone: Bulk Unremarkable and Tone Unremarkable
Touch Sensation: Unremarkable
Coordination: Obqmrd-[id number] Testing Unremarkable
Data Reviewed
-
MRI Head: Report Reviewed and Image Reviewed
Orthostatic Testing: Report Reviewed
Labs: Report Reviewed
Reviewed with: Nurse Practioner and Patient
Old Records: Summarized
Past History
Past History
ED Past Medical History: HTN
ED Past Surgical History: None
Social History
Tobacco: Non-smoker
Alcohol: None
Drug: None
Personal:
Living: with family
Medications
-
Medications:
Generic Name Dose Route Start Last Admin
Trade Name Freq PRN Reason Stop Dose Admin
Amlodipine Besylate 2.5 mg 06/08/24 16:00 06/08/24 16:20
Amlodipine 2.5 Mg Tablet PO 07/06/24 15:59 2.5 mg
DAILY RICHARDSON Administration
Aspirin 325 mg 06/08/24 18:00 06/08/24 17:29
Aspirin 325 Mg Enteric Coated Tablet PO 07/06/24 17:59 325 mg
QPM RICHARDSON Administration
Atorvastatin Calcium 80 mg 06/08/24 08:00 06/08/24 09:09
Atorvastatin (Lipitor) 80 Mg Tablet PO 07/06/24 07:59 80 mg
DAILY RICHARDSON Administration
Calcium Polycarbophil 1,250 mg 06/08/24 08:00 06/08/24 20:11
Calcium Polycarbophil 625 Mg Tablet PO 07/06/24 07:59 1,250 mg
TID RICHARDSON Administration
Carvedilol 25 mg 06/08/24 20:00 06/08/24 20:11
Carvedilol 25 Mg Tablet PO 07/06/24 19:59 25 mg
BID RICHARDSON Administration
Cyanocobalamin 1,000 mcg 06/09/24 09:00
Cyanocobalamin 1,000 Mcg Tablet PO 07/07/24 08:59
DAILY RICHARDSON
Dextrose 12.5 grams 06/08/24 11:00
Dextrose 50% (0.5 Grams/Ml) 50 Ml Syringe IV 07/06/24 10:59
[id number] PRN
hypoglycemia
Protocol
Finasteride 5 mg 06/08/24 18:00 06/08/24 22:01
Finasteride 5 Mg Tablet PO 07/06/24 17:59 5 mg
QPM RICHARDSON Administration
Glucagon 1 mg 06/08/24 11:00
Glucagon 1 Mg Vial IM 07/06/24 10:59
PRN PRN
hypoglycemia
Protocol
Hydralazine HCl 5 mg 06/07/24 22:28 06/08/24 10:15
Hydralazine 20 Mg/Ml Vial IV 07/05/24 22:27 5 mg
Q6HPRN PRN Administration
HTN
Insulin Aspart 0 units 06/08/24 11:30 06/08/24 17:00
Insulin Aspart Low Resistance 300 Units/3 Ml Pen.Injctr SC 07/06/24 11:29 Not Given
AC RICHARDSON
Protocol
Metformin HCl 500 mg 06/08/24 08:00 06/08/24 17:28
Metformin 500 Mg Regular Release Tablet PO 07/06/24 07:59 500 mg
BID AT 0800,1700 RICHARDSON Administration
Pantoprazole Sodium 40 mg 06/08/24 08:00 06/08/24 09:09
Pantoprazole 40 Mg Delayed Release Tablet PO 07/06/24 07:59 40 mg
DAILY RICHARDSON Administration
Fluticasone/Salmeterol 2 puff 06/08/24 08:00 06/09/24 07:54
Advair Hfa 115/21 Inhaler INH 07/06/24 07:59 2 puff
R DAILY RICHARDSON Administration
Sodium Chloride 0 flush 06/07/24 23:00
Sodium Chloride 0.9% (Flush) Syringe IV 07/05/24 22:59
PER PROTOCOL RICHARDSON
Thiamine HCl 100 mg 06/08/24 11:00 06/08/24 13:25
Thiamine 100 Mg Tablet PO 06/10/24 08:01 100 mg
DAILY RICHARDSON Administration
Tolterodine Tartrate 2 mg 06/08/24 08:00 06/08/24 09:10
Tolterodine 2 Mg Extended Release Capsule PO 07/06/24 07:59 2 mg
DAILY RICHARDSON Administration
Valsartan 320 mg 06/08/24 18:00 06/08/24 17:30
Valsartan 80 Mg Tablet PO 07/06/24 17:59 320 mg
QPM RICHARDSON Administration
[2024-06-09] MEDS: FIBERCON 1250 MG PO (08:38)
--- NOTE | 2024-06-09 08:38 | W.PN.CARDCBS ---
Addendum entered and electronically signed by Jorge Luis Barnhart MD 06/09/24 10:21:
I saw and examined the patient.
The Crystal Syrup Maker's note was reviewed and I agree with the note.
Comment: Briefly, 74-year-old man past medical history of atrial fibrillation with remote PVI in 2014 who presents following episodes of word finding difficulty concerning for TIA
Patient seems to be back to baseline today
No acute abnormality on MRI of the brain
Agree with continuing aspirin/statin
Maintaining sinus rhythm on telemetry
We will arrange for outpatient bight maker to assess for recurrence of A-fib
Transthoracic echocardiogram with worsening LVH but otherwise normal systolic function and no significant valvular pathology
Plan to uptitrate antihypertensives for tighter blood pressure control
Stable cardiac status, outpatient follow-up has been arranged
Original Note:
Today's Communication / Plan
-
for 2 week monitor
continue coreg 25mg BID (dose increased this admission), valsartan 320mg daily, and norvasc 2.5mg daily (new this admission)
follow BPs at home.
continue asa, statin
OP cardiac follow up arranged
Impression / Plan
-
Primary Hog Operator: Dr. Marcelo Alonzo, last seen 2015
Assessment:
Presentation with aphasia, resolved
TIA
Hypertensive urgency
Paroxysmal atrial fibrillation status post cryo PVI 11/28/2014
Atrial flutter status post EP study and CTI flutter ablation 09/21/2014
Chronic bifascicular block
Hypertension
Hyperlipidemia
Diabetes 2, hgba1c 6.5%
GERD/Sommers's esophagus
COPD
[place]
BPH status post prostatectomy 04/2023
Spinal stenosis
AAA
History of pulmonary nodules
Former smoker
mild LFT elevation
ECHO 03/27/23: EF 55%, mild cLVH, RV grossly enlarged, aortic sclerosis, PAP 20 to 25 mmHg, trace pericardial effusion with pericardial fat
ECHO 06/08/2024: Moderate to severe concentric LVH, EF 65 to 70%, trivial pericardial effusion, fat pad present
Plan:
-Patient presented with 2 episodes of transient aphasia over the last several weeks, concern for TIAs.
-Head CT and brain MRI negative for acute abnormality. No evidence of significant carotid stenosis
-no recurrence of afib or aflutter noted on tele since admission. planned for 2 week bight maker to be placed today. if bight maker negative, would consider for linq implant. he has history of afib and aflutter s/p CTI and PVI 2014 without
known recurrence.
-needs improved BP control, possible etiology of TIAs. echo with evidence of mod to severe cLVH. continue coreg 25mg BID (dose increased this admission), valsartan 320mg daily, and norvasc 2.5mg daily (new this admission). advised he should monitor
BP trends at home
-LFTs improved. LDL 62. continue statin
-continue asa 325mg daily
-continue treatment of sleep apnea
-outpatient cardiac follow-up arranged
-Discussed with hospitalist via [place] text
Progress Note - Hog Operator
Subjective
Date of Service: June 09, 2024
no issues overnight
Objective
Labs:
06/09/24 06:40
06/09/24 06:40
Labs
Hgb 13.9 g/dL (13.0-18.0) 06/09/24 06:40
Hct 38.4 % (39.0-52.0) L 06/09/24 06:40
Plt Count 192 10^3/uL (130-400) 06/09/24 06:40
PT 13.4 Sec (11.4-14.6) 06/07/24 16:37
INR 1.04 06/07/24 16:37
APTT 27.6 Sec (23.4-35.0) 06/07/24 16:37
Sodium 141 mmol/L (135-145) 06/09/24 06:40
Potassium 4.2 mmol/L (3.5-5.1) 06/09/24 06:40
BUN 30 mg/dl (9-20) H 06/09/24 06:40
Creatinine 1.0 mg/dL (0.7-1.3) 06/09/24 06:40
Glucose 140 mg/dl (70-99) H 06/09/24 06:40
Troponins
06/07/24
16:37
Troponin I < 0.012
Vital Signs and I&O:
Vital Signs
Temp Pulse Resp BP Pulse Ox
97.8 F 80 18 161/98 95
06/09/24 07:55 06/09/24 07:55 06/09/24 07:55 06/09/24 07:55 06/09/24 07:55
Vital Signs
Temp Pulse Resp BP Pulse Ox
97.8 F 80 18 161/98 95
06/09/24 07:55 06/09/24 07:55 06/09/24 07:55 06/09/24 07:55 06/09/24 07:55
Intake & Output
06/07/24 06/08/24 06/09/24 06/10/24
07:59 07:59 07:59 07:59
Intake Total 480 / 480 1680 / 1680
Balance 480 / 480 1680 / 1680
Physical Exam
Physical Exam
GEN: No distress, awake, alert, oriented x3
HEENT: supple, anicteric, mmm, eomi
LUNGS: CTA B/L, no wheezes/rales
CV: Reg, S1/S2, no murmur
ABD: soft, BS+, NT/ND
EXT: No cyanosis, clubbing, edema
NEURO: Gross non-focal
SKIN: Warm, pink, dry. No rash
[2024-06-09] MEDS: COREG 25 MG PO (08:39)
[2024-06-09] MEDS: DETROL LA 2 MG PO (08:39)
[2024-06-09] MEDS: NORVASC 2.5 MG PO (08:39)
[2024-06-09] MEDS: VITAMIN B1 100 MG PO (08:39)
[2024-06-09] MEDS: GLUCOPHAGE 500 MG PO (08:39)
[2024-06-09] MEDS: PROTONIX 40 MG PO (08:39)
[2024-06-09] MEDS: LIPITOR 80 MG PO (08:39)
--- NOTE | 2024-06-09 10:20 | PTOTSP ---
Speech Language Pathology
VIDEOFLUOROSCOPIC SWALLOWING EXAMINATION (VSE) completed. Oropharyngeal swallow WFL. Transient supraglottic penetration (PAS 2) noted with thin liquids via consecutive straw sips and mildly thick liquids via cup/consecutive straw sips. No other
penetration or any aspiration noted. Of note, pt with cough during study in absence of any dysfunction.
Recommend:
(1) Continue regular solids/thin liquids
(2) General aspiration precautions
(3) Meds as tolerated
(4) Consider OP GI follow up
(5) RANGE MOUNTER to sign off. Please reconsult as indicated
[2024-06-09 11:27] VITALS: BP 121/73
--- NOTE | 2024-06-09 11:34 | W.PN.HOSP.TC ---
Today's Communication/Plan
-
Monitor vital signs see plan
Discharge today
Time of discharge 37 minutes
Assessment / Plan
Assessment / Plan
General: Well Developed, Well Nourished and No Apparent Distress
HEENT: NormoCephalic, Moist mucous membranes and Atraumatic
Respiratory: Clear
Cardiac: S1/S2 and Regular Rhythm; No Murmur or Rub
GI: Soft, Non Tender, Non Distended and Normal Bowel Sounds; No Organomegaly
Rectal: Deferred by Provider
Musculoskeletal: No Clubbing, No Cyanosis and No Edema
Skin: No Rash
Neuro: Nonfocal/grossly intact
Resolved aphasia likely TIA
-CT head shows no acute intracranial abnormality
-Check MRI/MRA head and neck without any acute CVA. Suspect symptoms could also be secondary to uncontrolled hypertension. His blood pressure medication has been titrated. He will follow-up with his primary care provider for further titration
-Continue aspirin, statin
-Neurology following
Echo with LVH
Hypertensive urgency
Now improving
-Continue valsartan,coreg
Paroxysmal atrial fibrillation status post PVI
-Continue Coreg
-Not on anticoagulation
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 Patient will follow with cardiology outpatient. Currently no need for anticoagulation as has not had any arrhythmia in years per cardiology
Functional oropharyngeal dysphagia per speech
Recommended to follow-up with GI outpatient
hx of DM
On metformin at home
Insulin sign scale, Accu-Chek
Atrial flutter status post ablation 2014
Hyperlipidemia
-Continue statin
Bifascicular heart block
Spinal stenosis
Obesity
Abdominal aortic aneurysm
Mild LFT elevation
Denies abdominal pain
Monitor
BPH
-Continue finasteride
Fatty liver
Diverticulosis
GERD/Sommers's esophagus
-Continue lansoprazole
Type 2 diabetes
-Continue metformin
History of pulmonary nodules
Overactive bladder
-Continue trospium
Full code
DVT prophylaxis-�SCDs
Anticipated Discharge: Today
Subjective/Interval History
-
Date of Service: June 09, 2024
Denies pain
Objective Data
-
Labs:
Laboratory Results
06/09/24
06:40
WBC 10.0
Hgb 13.9
Hct 38.4 L
Plt Count 192
Sodium 141
Potassium 4.2
Chloride 101
Carbon Dioxide 29
BUN 30 H
Creatinine 1.0
Glucose 140 H
Calcium 9.8
Total Bilirubin 1.2
AST 53
ALT 60 H
Alkaline Phosphatase 47
Vital Signs:
Vital Signs
Temp Pulse Resp BP Pulse Ox
97.5 F 72 18 121/73 98
06/09/24 11:27 06/09/24 11:27 06/09/24 11:27 06/09/24 11:27 06/09/24 11:27
I&O
06/08/24 06/09/24 06/10/24
06:59 06:59 06:59
Intake Total 480 / 480 1680 / 1680
Balance 480 / 480 1680 / 1680
[2024-06-09 11:37] LABS: Glucose - Point of Care 162 mg/dl (70-99)
--- NOTE | 2024-06-09 11:41 | W.DCSUMMARY ---
Discharge Summary
Discharge Data
Date of Admission: 06/07/24
Date of Discharge: 06/09/24
-
Pending Results: No
Hospital Course
74-year-old male with past medical history of essential hypertension, proximal atrial fibrillation status post ablation, diabetes mellitus, hyperlipidemia, bifascicular block, spinal stenosis, obesity, abdominal aortic aneurysm, BPH, GERD/Sommers's
esophagus, diabetes mellitus, pulmonary nodules, overactive bladder came to the hospital with aphasia concerning for TIA/CVA. MRI later was done did not show any signs of acute CVA. Patient symptoms were likely thought was secondary to TIA or
possible hypertensive encephalopathy. His blood pressure medications were increased and he was also started amlodipine. He was seen by neurology and cardiology throughout hospitalization. Cardiology recommended outpatient international controller and not
to start any anticoagulation at this time since patient last arrhythmia was long time ago. He was instructed to follow-up closely with his primary care provider for his blood pressure medication titration. He also had mild dysphagia for which she
was seen by speech who performed a VSE which showed functional oropharyngeal dysphagia and patient was instructed to follow-up with GI outpatient. Once his symptoms continue to improve, he was then discharged home with instructions to follow-up
with all her physicians outpatient.
Discharge Plan
-
Patient Disposition: Home (Routine Discharge)
Discharge Diagnosis/Procedures: TIA
Suspect uncontrolled hypertension
Dysphagia
Diet: As tolerated
Activity: As tolerated
Driving Restrictions: As prior to admission
Bathing Restrictions: None
Others Tests: 2 week international controller, being placed prior to discharge
Activity Restrictions/Additional Instructions:
Please follow-up with gastroenterology for dysphagia
Please check your blood pressure twice daily and write those numbers down and contact your primary care provider for further blood pressure medication titration
Referrals:
Jewel Melara MD [Family Provider] - in less than 1 week
Julia Ricardo CRNP [Specified Professional Personl] - 06/28/24 12:40 pm (You have a cardiology follow-up appointment at the [place] office with Dr. Robertson's nurse practitioner, Julia. Please call with questions)
Prescriptions:
New
carvedilol 25 mg Tablet
25 mg PO BID Qty: 60 0RF
cyanocobalamin (vitamin B-12) 1,000 mcg Tablet
1,000 mcg PO DAILY Qty: 30 0RF
amlodipine 2.5 mg Tablet
2.5 mg PO DAILY Qty: 30 0RF
thiamine HCl (vitamin B1) 100 mg Tablet
100 mg PO DAILY Qty: 30 0RF
Continued
metformin 500 MG tablet
500 mg PO BID
aspirin 325 MG tablet,delayed release (DR/EC)
325 mg PO QPM Qty: 0 0RF
fluticasone propion-salmeterol [Wixela Inhub] 250-50 mcg/dose Blister With Device
1 inh INHALATION R DAILY
atorvastatin 80 mg Tablet
80 mg PO DAILY
finasteride 5 mg Tablet
5 mg PO QPM
cnhkljxlicuq-wfjvmesd-wbrmsw Tablet
1 tab PO QPM
Advil PM 200-38 mg Tablet
2 cap PO HSPRN PRN (Reason: mild pain)
coQ10 (ubiquinol) 200 mg Capsule
200 mg PO QPM
lansoprazole 30 mg Capsule,Delayed Release(Dr/Ec)
30 mg PO DAILY
valsartan 320 mg Tablet
320 mg PO QPM
trospium 60 mg Capsule,Extended Release 24hr
60 mg PO DAILY
Move Free Joint Health 750 mg-100 mg- 1.65 mg-108 mg Tablet
1 tab PO DAILY
Fiber Gummies 2 gram Tablet,Chewable
2 g PO TID
Discontinued
carvedilol 12.5 MG tablet
12.5 mg PO BID
Discharge Orders:
Discharge Patient (As Directed); Ordered 06/09/24
Ordered By: Russel Sutton
Discharge Date and Time
Discharge Date/Time: 06/09/24 12:56
Print Language: ARMENIAN
[2024-06-09 11:46] VITALS: BP 121/73; PULSE 72
[2024-06-09] MEDS: VITAMIN B-12 1000 MCG PO (11:52)
--- NOTE | 2024-06-09 13:02 | CM ---
MD entered order for discharge.
Pt declined VN at dc.
to drive him home.
PLAN Home no needs
== END 2024-06-09 12:56 | disposition home or self-care (01) ==
LOC: 4 EAST ACU 20:54
PROVIDERS: Student in an Organized Health Care Education/Training Program; ADMITTING PHYSICIAN Hospitalist; ATTENDING PHYSICIAN Internal Medicine; CONSULT PHYSICIAN Internal Medicine Cardiovascular Disease; CONSULT PHYSICIAN Psychiatry & Neurology Neurology; EMERGENCY PHYSICIAN Emergency Medicine; FAMILY PHYSICIAN Family Medicine
DX: G45.9 Transient cerebral ischemic attack, unspecified (principal); R47.01 Aphasia; I11.9 Hypertensive heart disease without heart failure; I48.0 Paroxysmal atrial fibrillation; I48.92 Unspecified atrial flutter; R91.8 Other nonspecific abnormal finding of lung field; E78.5 Hyperlipidemia, unspecified; I71.40 Abdominal aortic aneurysm, without rupture, unspecified; N40.1 Benign prostatic hyperplasia with lower urinary tract symptoms; I45.2 Bifascicular block; K22.70 Barrett's esophagus without dysplasia; I16.0 Hypertensive urgency; N32.81 Overactive bladder; G47.33 Obstructive sleep apnea (adult) (pediatric); R13.12 Dysphagia, oropharyngeal phase; R79.89 Other specified abnormal findings of blood chemistry; E66.9 Obesity, unspecified; I31.39 Other pericardial effusion (noninflammatory); G31.9 Degenerative disease of nervous system, unspecified; I67.82 Cerebral ischemia; J44.89 Other specified chronic obstructive pulmonary disease; M47.816 Spondylosis without myelopathy or radiculopathy, lumbar region; E11.9 Type 2 diabetes mellitus without complications; K21.9 Gastro-esophageal reflux disease without esophagitis; K76.0 Fatty (change of) liver, not elsewhere classified; Z82.3 Family history of stroke; Z86.79 Personal history of other diseases of the circulatory system; Z87.19 Personal history of other diseases of the digestive system; Z88.2 Allergy status to sulfonamides; Z79.84 Long term (current) use of oral hypoglycemic drugs; Z79.51 Long term (current) use of inhaled steroids; Z79.82 Long term (current) use of aspirin; Z87.891 Personal history of nicotine dependence; Z90.79 Acquired absence of other genital organ(s); Z90.89 Acquired absence of other organs
CPT/HCPCS: 70450; 70544; 70548; 70551; 74230; 80048; 80053; 80061; 82607; 82728; 82746; 82962; 83036; 84443; 84484; 85025; 85610; 85730; 92523; 92610; 92611; 93005; 93306; 94640; 94660; 97116; 97161; 97167; 99285; A9585; G0378; Q9950

== ENCOUNTER 2024-06-09 14:15 | Emergency (ER) | payer MEDICARE, OTHER, SELFPAY ==
[2024-06-09] VITALS (9 sets, daily range): BP systolic 152–170; BP diastolic 94–110; PULSE 74–83
[2024-06-09] MEDS: NSS 500 IV (16:31)
[2024-06-09 16:50] LABS: % Basophils 0.8 % (0-2); % Eosinophils 5.2 % (0-6); % Immature Granulocytes 0.3 % (0-0.5); % Neutrophils 62.7 % (42.2-75.2); Absolute Basophils 0.1 10^3/uL (0-0.2); Absolute Eosinophils 0.6 10^3/uL (0-0.7); Absolute Lymphocytes 2.5 10^3/uL (1.2-3.4); Absolute Monocytes 0.9 10^3/uL (0.1-0.6); Absolute Neutrophils 6.7 10^3/uL (1.4-6.5); Hematocrit 40.3 % (39.0-52.0); Hemoglobin 14.9 g/dL (13.0-18.0); Mean Corpuscular Hgb 31.9 pg (27.0-31.0); Mean Corpuscular Volume 86.3 fL (80.0-94.0); Mean Platelet Volume 10.6 fL (7.4-10.4); Nucleated Red Blood Cells % 0 % (-); Platelet Count 214 10^3/uL (130-400); Red Blood Cell Count 4.67 10^6/uL (4.70-6.10); Red Cell Dist. Width 12.9 % (11.5-14.5); White Blood Cell Count 10.6 10^3/uL (4.8-10.8)
[2024-06-09 17:03] LABS: Blood Urea Nitrogen 32 mg/dl (9-20); Calcium 10.5 mg/dl (8.4-10.2); Carbon Dioxide 23 mmol/L (22-30); Chloride 102 mmol/L (98-107); Glucose 147 mg/dl (70-99); Potassium 4.3 mmol/L (3.5-5.1); Sodium 139 mmol/L (135-145); eGFR > 60.00
--- NOTE | 2024-06-09 17:24 | ED.CVA ---
History of Present Illness
General
Chief Complaint: CVA/TIA Symptoms
Source: patient and spouse
Exam Limitations: none
Time Seen by Provider: 06/09/24 15:43
Nursing documentation reviewed up to this point in time: agreed with
Onset of Stroke Symptoms
Onset of symptoms known: Yes
Date of onset of symptoms: 06/09/24
Time of onset of symptoms: 12:00
Time pt last seen normal is known: No
History of Present Illness
History of Present Illness:
74-year-old male past medical history of A-fib, hypertension hyperlipidemia, diabetes presenting to the emergency department today with concerns of an episode of expressive aphasia right hand tingling lasted for a few minutes gradually improving
since asymptomatic at time of my assessment within an hour or so. Had similar symptoms 2 days ago was admitted to the hospital had extensive workup without any findings. He denies any chest pain shortness of breath numbness weakness at this point.
Past History
Past History
ED Past Medical History: HTN
ED Past Surgical History: None
Social History
Tobacco: Non-smoker
Alcohol: None
Drug: None
Personal:
Living: with family
Review of Systems
Review of Systems
Allergies reviewed?: Yes
All Other Systems: ROS reviewed and negative except as documented in HPI and ROS
Phy Exam
Physical Exam
Physical Exam:
GENERAL: Alert , in no apparent distress
EYE: pupils equal and reactive
NECK: Supple, no significant adenopathy.
ENT: o/p clr, mmm.
CARDIAC: Regular rate and rhythm .
LUNGS: Clear breath sounds bilaterally, no acute respiratory distress, no wheezes/rales/rhonchi
ABDOMEN: Soft, without focal tenderness, no r/g, no cvat
NEUROLOGICAL: Alert and oriented, no focal neuro deficits 5 out of 5 upper and lower extremity strength normal sensation when palpating bilaterally normal finger-nose and jgrc-oo-wqnw no pronator drift walking steady gait. Normal speech
SKIN: Warm and dry, skin intact.
MUSCULOSKELETAL: No edema, well perfused.
PSYCH: Normal and appropriate interaction.
Course
Orders/Labs/Results
Orders:
Orders
06/09/24 14:21
CT Head W/o Iv Contrast Urgent
Comment:
Reason For Exam: TIA symptoms, now resolved.
06/09/24 16:19
Orthostatic VS- Treatment ONCE
06/09/24 16:20
0.9% Sodium Chloride 500 ml [Nss] 500 ml IV BOLUS
06/09/24 16:25
BMP [Basic Metabolic Panel] Urgent
CBC/With Diff [Complete Blood Count/With Diff] Urgent
Abnormal Lab Results
06/09/24
16:25
RBC 4.67 L 10^6/uL
(4.70-6.10)
MCH 31.9 H pg
(27.0-31.0)
MPV 10.6 H fL
(7.4-10.4)
Absolute Neuts (auto) 6.7 H 10^3/uL
(1.4-6.5)
Absolute Monos (auto) 0.9 H 10^3/uL
(0.1-0.6)
BUN 32 H mg/dl
(9-20)
Glucose 147 H mg/dl
(70-99)
Calcium 10.5 H mg/dl
(8.4-10.2)
06/09/24 16:25
06/09/24 16:25
Vital Signs
Initial and Last Documented VS:
Initial Vital Signs
Temp Pulse Resp Pulse Ox
97.6 F 74 19 95
06/09/24 14:17 06/09/24 14:17 06/09/24 14:17 06/09/24 14:17
Last Documented Vital Signs
Temp Pulse Resp BP Pulse Ox
97.6 F 81 18 170/99 96
06/09/24 14:17 06/09/24 16:30 06/09/24 16:30 06/09/24 16:30 06/09/24 16:30
MDM/Problems Addressed
MDM/Problems Addressed:
74-year-old male presenting to the emergency department today with concerns of expressive aphasia prior to arrival. Was just discharged for similar symptoms where he had a normal workup other than orthostatic hypotension. On arrival blood pressure
elevated otherwise vital signs are normal. He was given some fluids considering his BUN was elevated compared to his creatinine. Case was discussed with neurology that felt he does not require any additional workup at this time and should
follow-up as an outpatient. No symptoms throughout ER stay otherwise stable for discharge.
*Critical Care Note
Total Time (30-74mins, 75-104mins- exclusive of procedures): Not Applicable
ED Attending Note
-
Portions of this chart may have been created with voice recognition software.� Occasional wrong word or��sound alike� substitutions may have occurred due to the inherent limitations of voice recognition software.
Discharge Plan
Departure
Patient Disposition: Home (Routine Discharge)
Date of Disposition: 06/09/24
Time of Disposition: 18:00
Patient with high blood pressure during this ER visit?: No
Condition: Good
Covid-19: Not Applicable
Discharge Problem:
Aphasia
Prescriptions:
No Action
metformin 500 MG tablet
500 mg PO BID
aspirin 325 MG tablet,delayed release (DR/EC)
325 mg PO QPM Qty: 0 0RF
fluticasone propion-salmeterol [Wixela Inhub] 250-50 mcg/dose Blister With Device
1 inh INHALATION R DAILY
atorvastatin 80 mg Tablet
80 mg PO DAILY
finasteride 5 mg Tablet
5 mg PO QPM
ndxyrdyteztx-aloastpd-fexblb Tablet
1 tab PO QPM
Advil PM 200-38 mg Tablet
2 cap PO HSPRN PRN (Reason: mild pain)
coQ10 (ubiquinol) 200 mg Capsule
200 mg PO QPM
lansoprazole 30 mg Capsule,Delayed Release(Dr/Ec)
30 mg PO DAILY
valsartan 320 mg Tablet
320 mg PO QPM
trospium 60 mg Capsule,Extended Release 24hr
60 mg PO DAILY
Move Free Joint Health 750 mg-100 mg- 1.65 mg-108 mg Tablet
1 tab PO DAILY
Fiber Gummies 2 gram Tablet,Chewable
2 g PO TID
carvedilol 25 mg Tablet
25 mg PO BID Qty: 60 0RF
cyanocobalamin (vitamin B-12) 1,000 mcg Tablet
1,000 mcg PO DAILY Qty: 30 0RF
amlodipine 2.5 mg Tablet
2.5 mg PO DAILY Qty: 30 0RF
thiamine HCl (vitamin B1) 100 mg Tablet
100 mg PO DAILY Qty: 30 0RF
Referrals:
UNKNOWN - PT DOES,NOT KNOW [Family Provider] -
Activity Restrictions/Additional Instructions:
You came to the emergency department today with concerns of recurrence of symptoms. Please follow closely with cardiology and neurology. Return to the emergency department for any worsening, progressive, recurrent or any other new or concerning
symptoms.
Interventions
Interventions:
*Risk Screen - Suicide Last Done: 06/09/24 14:17
*General Assessment Last Done: 06/09/24 14:17
*Neglect/Abuse Screening Last Done: 06/09/24 14:17
ED- Fall Risk Assessment Last Done: 06/09/24 16:32
*ED COVID-19 Vaccine History Last Done: 06/09/24 16:32
ED- Pulmonary Assessment Last Done: 06/09/24 16:32
ED- Neurological Assessment Last Done: 06/09/24 16:32
ED- Cardiac Assessment Last Done: 06/09/24 16:32
ED Swallowing Screen Last Done: 06/09/24 16:32
Discharge Date and Time
Print Language: NAURUAN
== END 2024-06-09 18:22 | disposition home or self-care (01) ==
LOC: EMR 14:15
PROVIDERS: Physician Assistant; EMERGENCY PHYSICIAN Emergency Medicine
DX: R47.01 Aphasia (principal); R20.2 Paresthesia of skin; I48.91 Unspecified atrial fibrillation; I10 Essential (primary) hypertension; E78.5 Hyperlipidemia, unspecified; E11.9 Type 2 diabetes mellitus without complications
CPT/HCPCS: 96360; 99284; 70450; 80048; 85025

== ENCOUNTER → 2024-06-10 07:58 | Outpatient (REF) | payer MEDICARE, OTHER, SELFPAY | LOC: RAD 07:58 | PROVIDERS: ATTENDING PHYSICIAN Surgery Vascular Surgery; FAMILY PHYSICIAN Family Medicine | DX: I71.40 Abdominal aortic aneurysm, without rupture, unspecified (principal) | CPT/HCPCS: 76770 ==

== ENCOUNTER 2024-10-06 11:38 | Day surgery (SDC) | payer MEDICARE, OTHER, SELFPAY ==
--- NOTE | 2024-10-06 13:03 | ITS.CL.IMPLP ---
[employer] - Implant Loop
Implant Loop
Procedure Report:
Date of Procedure: 10/06/24
Primary Care Provider: Dr Patricia Hanson
Procedure: Insertable Loop Recorder Implantation
Indication:
Cryptogenic CVA
Extended outpatient monitoring has demonstrated no sustained arrhythmias. Given his prior history of atrial fibrillation but no documented recurrences since his ablation in 2014 and his current diagnosis of cryptogenic stroke, implantation of a loop
recorder for surveillance of atrial fibrillation as a potential cause of his cryptogenic stroke is indicated.�
Procedure:
The patient was brought to the procedure area in a fasting state. The anterior chest was prepped and draped in standard sterile fashion. The fourth intercostal space along the left sternal border was identified and this area was anesthetized with 10
mL of 1% lidocaine. After gathering the skin in this area, a small punch incision was made at approx intercostal space 4-5 at left costo-sternal junction using the provided scalpel/punch tool. The loop recorder was loaded into the tunneling device.
A tunnel was created in the subcutaneous tissue at a 45� angle along the coronal plane away from the sternum and towards the left flank. The tunneling device was inverted and the plunger was depressed, inserting the loop recorder into the
subcutaneous space. The tunneling device was removed. Manual pressure provide hemostasis. Adequate signal was confirmed. The skin was closed with steri-strips. The estimated blood loss was < 1 cc. A clean dressing was placed over the wound.
There were no complications.
Implant:
[employer] Reveal LINQ
Conclusion: Uncomplicated implantation of loop recorder.
Recommendation: Routine ILR care.
Copy:
Dr Patricia Hanson
== END 2024-10-06 13:20 | disposition home or self-care (01) ==
LOC: CATH 11:38
PROVIDERS: ATTENDING PHYSICIAN Internal Medicine Cardiovascular Disease; FAMILY PHYSICIAN Family Medicine
DX: Z09 Encounter for follow-up examination after completed treatment for conditions other than malignant neoplasm (principal); I48.91 Unspecified atrial fibrillation; Z86.73 Personal history of transient ischemic attack (TIA), and cerebral infarction without residual deficits; Z79.82 Long term (current) use of aspirin; Z79.899 Other long term (current) drug therapy; Z79.84 Long term (current) use of oral hypoglycemic drugs
CPT/HCPCS: 33285; C1764

== ENCOUNTER → 2025-06-15 09:29 | Outpatient (REF) | payer MEDICARE, OTHER, SELFPAY | LOC: RAD 09:29 | PROVIDERS: ATTENDING PHYSICIAN Surgery Vascular Surgery; FAMILY PHYSICIAN Family Medicine | DX: I71.40 Abdominal aortic aneurysm, without rupture, unspecified (principal) | CPT/HCPCS: 76770 ==